=== PATIENT | female | born 1950 | race Caucasian/White ===

== ENCOUNTER 2018-09-14 06:30 | Inpatient (IN) | payer MEDICARE, BC ==
[2018-09-14] MEDS: TRANEXAMIC ACID 1,000 MG in DEXTROSE 5% 100 ML IVPB (06:00)
[2018-09-14] MEDS: CEFAZOLIN 2 GM/50 ML (PMX) 50 ML IVPB (06:00)
[~2018-09-14 06:30] MED LIST: BUPIVACAINE 0.5% (SDV) 30 ML, morphine SULFATE (PF) 8 MG, EPINEPHrine 0.3 MG, KETOROLAC... IRR
[2018-09-14] MEDS ORDERED: POLYMYXIN/BACITRACIN 1L IRRIG (06:53)
[2018-09-14] MEDS ORDERED: THROMBIN 5000 UNIT VIAL (06:53)
[2018-09-14] MEDS ORDERED: CA CHLORIDE (GM) 10% 10 ML INJ (06:53)
[2018-09-14] MEDS ORDERED: SEVOFLURANE 15 MIN (07:00)
[2018-09-14] MEDS ORDERED: EPHEDrine SULFATE 50 MG/5 ML SYG (07:00)
[2018-09-14] MEDS: DEXAMETHASONE 1 MG TAB PO (07:33)
[2018-09-14] MEDS: GABAPENTIN 300 MG CAP PO ×2 (07:33→20:54)
[2018-09-14] MEDS ORDERED: ROPIVACAINE 0.5 % 30 ML VIAL (07:42)
[2018-09-14] MEDS ORDERED: FENTAnyl 50 MCG/ML VIAL (07:42)
[2018-09-14] MEDS ORDERED: MIDAZOLAM 1 MG/ML 2 ML INJ (07:42)
[2018-09-14] MEDS ORDERED: PHENYLephrine (100 MCG/ML) 10ML SYG (08:23)
[2018-09-14] MEDS ORDERED: CEFAZOLIN 1 GM INJ (08:24)
[2018-09-14] MEDS ORDERED: PROPOFOL 20 ML (08:24)
[2018-09-14] MEDS ORDERED: LIDOCAINE 2% (SDV) 5 ML INJ (08:24)
[2018-09-14] MEDS ORDERED: ONDANSETRON 4 MG INJ (08:49)
[2018-09-14] MEDS ORDERED: SUCCINYLCHOLINE CHLORIDE 100 MG/5 ML SYG IV (08:49)
[2018-09-14] MEDS ORDERED: DEXAMETHASONE 4 MG/ML 1 ML INJ (08:49)
[2018-09-14] MEDS ORDERED: ROCURONIUM 50 MG INJ (08:49)
[2018-09-14] MEDS ORDERED: FAMOTIDINE 20 MG INJ (08:50)
[2018-09-14] MEDS ORDERED: HYDROmorphONE 2 MG/ML SYG (09:38)
[2018-09-14] MEDS ORDERED: SUGAMMADEX SODIUM 200 MG/2 ML VIAL IV (09:49)
[2018-09-14] MEDS ORDERED: HYDROmorphONE 1 MG/5 ML IV SYRINGE IV ×3 (10:00)
[2018-09-14] MEDS ORDERED: FENTAnyl 50 MCG/ML VIAL IV (10:00)
[2018-09-14] MEDS ORDERED: PROCHLORPERAZINE 10 MG INJ IV (10:00)
[2018-09-14] MEDS ORDERED: oxyCODONE 5 MG TAB PO (10:30)
[2018-09-14] MEDS ORDERED: DIPHENHYDRAMINE 50 MG INJ IV (10:30)
[2018-09-14] MEDS ORDERED: NACL 0.9% 3 ML SYG IV (10:30)
[2018-09-14] MEDS ORDERED: LOPERAMIDE 2 MG CAP PO (10:30)
[2018-09-14] MEDS ORDERED: MAGNESIUM HYDROXIDE 30ML CUP PO (10:30)
[2018-09-14] MEDS ORDERED: CEFAZOLIN 1 GM/50 ML (PMX) 50 ML IVPB (10:50)
[2018-09-14] MEDS: DIPHENHYDRAMINE 50 MG INJ IV (10:51)
[2018-09-14] MEDS: TRANEXAMIC ACID 1,000 MG in SOD CHLORIDE 0.9% 100 ML IVPB (11:09)
[2018-09-14] MEDS: CEFAZOLIN 1 GM/50 ML (PMX) 50 ML IVPB ×2 (11:24→17:22)
[2018-09-14] MEDS: ONDANSETRON 4 MG INJ IV ×3 (11:27→18:56)
[2018-09-14] MEDS: DEXAMETHASONE 2 MG TAB PO ×2 (13:09→17:21)
[2018-09-14] MEDS: ACETAMINOPHEN 500 MG TAB PO ×2 (13:10→17:26)
[2018-09-14] MEDS: KETOROLAC 15 MG INJ IV (20:40)
[2018-09-14] MEDS: SENNA/DOCUSATE NA (8.6MG/50MG) TAB PO (20:55)
[2018-09-14] MEDS: ZOLPIDEM 5 MG TAB PO (22:02)
[2018-09-15] MEDS: ACETAMINOPHEN 500 MG TAB PO ×2 (00:05→06:37)
[2018-09-15] MEDS: DEXAMETHASONE 2 MG TAB PO ×2 (00:06→06:36)
[2018-09-15] MEDS: CEFAZOLIN 1 GM/50 ML (PMX) 50 ML IVPB (02:50)
[2018-09-15] MEDS: oxyCODONE 5 MG TAB PO ×2 (02:58→09:20)
[2018-09-15] MEDS: HYDROmorphONE 1 MG/ML SYG IV ×2 (03:57→07:08)
[2018-09-15] MEDS: KETOROLAC 15 MG INJ IV (06:36)
[2018-09-15] MEDS: SENNA/DOCUSATE NA (8.6MG/50MG) TAB PO (09:19)
[2018-09-15] MEDS: ONDANSETRON 4 MG INJ IV (09:20)
== END 2018-09-15 09:58 | disposition home or self-care (01) | DRG 483 ==
LOC: REC 06:30 → MS1 11:55
PROC: 0RRJ00Z Replacement of Right Shoulder Joint with Reverse Ball and Socket Synthetic Substitute, Open Approach (ICD-10-PCS; principal; 2018-09-14 08:00)
PROC: 0LS30ZZ Reposition Right Upper Arm Tendon, Open Approach (ICD-10-PCS; 2018-09-14 08:00)
PROC: 0PB90ZZ Excision of Right Clavicle, Open Approach (ICD-10-PCS; 2018-09-14 08:00)
DX: M19.011 Primary osteoarthritis, right shoulder (principal); M75.101 Unspecified rotator cuff tear or rupture of right shoulder, not specified as traumatic; I10 Essential (primary) hypertension; E78.5 Hyperlipidemia, unspecified; M48.061 Spinal stenosis, lumbar region without neurogenic claudication; K58.9 Irritable bowel syndrome, unspecified
CPT/HCPCS: 73030-RT; 86999; 88304; 88311; 97167